=== PATIENT | male | born 1995 | race Two or more races ===

== ENCOUNTER 2016-12-17 18:00 | Inpatient (IN) | payer MEDICAID ==
[2016-12-17] MEDS ORDERED: VANCOMYCIN HCL/NORMAL SALINE 250 ML IV ONE (18:19)
[2016-12-17] MEDS ORDERED: TDAP ADULT 0.5 ML INJ (BOOSTRIX) IM ONE (18:19)
--- NOTE | 2016-12-17 18:27 | EDPHY ---
H & P Stated Complaint: abcess l axilla(iv drug use)drained 2 days ago at [facility]/hasn't fu - Personal History Current Tetanus/Diphtheria Vaccine: Yes - Medical/Surgical History Hx Asthma: No Hx Chronic Respiratory Disease: No Hx Diabetes: No Hx Cardiac Disease: No Hx Renal Disease: No Hx Cirrhosis: No Hx Alcoholism: No Hx HIV/AIDS: No Hx Splenectomy or Spleen Trauma: No Other PMH: iv drug use/mrsa - Social History Smoking Status: Never smoked Time Seen by Provider: 12/17/16 18:14 HPI/ROS: CHIEF COMPLAINT: Left forearm swelling, erythema HISTORY OF PRESENT ILLNESS: 21-year-old male lives in [place], history of IV methamphetamine use, was seen at [facility] 5 days ago for evaluation of left antecubital space soft tissue swelling at which point he had incision and drainage. He returned 2 days later and further incision and drainage on an abscess just distal to this area. He comes to the ER at [facility] today for further evaluation "because I heard the medical care in [place] is better". He is complaining of continued erythema, induration and notes decreased range of motion to the left elbow and pain with range of motion. He denies: Fever, chills, flu-like symptoms, chest pain, palpitations , dyspnea, back pain, abdominal pain. 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 Tetanus out-of-date SOCIAL HISTORY: IV methamphetamine use PHYSICAL EXAM (Prior to examination, patient consented to physical exam, hands were washed and my usual and customary physical exam procedures followed) 1) GENERAL: Well-developed, well-nourished, alert and oriented. Appears nontoxic 2) HEAD: Normocephalic, atraumatic 3) HEENT: Pupils equal, round, reactive to light bilaterally. Sclera anicteric. 4) NECK: Full range of motion, no meningeal signs. 5) LUNGS: Clear auscultation bilaterally, no wheezes, no rhonchi, no retractions. 6) HEART: Regular rate and rhythm, no murmur, no heave, no gallop. 7) ABDOMEN: No guarding, no rebound, no focal tenderness, 8) MUSCULOSKELETAL: left upper extremity: 2 incisions are noted, 1 at the antecubital fossa and 1 just distal to this. The distal incision has wound packing in place which is removed by myself. There is surrounding erythema, induration. Compartments are soft. Distal radial ulnar median nerve function intact with brisk pulses. He is unable to completely extend left elbow secondary to pain. No lymphangitic streaking. . 9) BACK: no visual or palpable abnormality. 10) SKIN: Cellulitic appearance left forearm 11) Psychiatric: Patient is oriented X 3, there is no agitation. DIFFERENTIAL DIAGNOSIS: In no particular include but limited to compartment syndrome, abscess, cellulitis, necrotizing fasciitis (Rigo Burnett) Constitutional: Initial Vital Signs Temperature (C) 36.8 C 12/17/16 18:04 Heart Rate 73 12/17/16 18:04 Respiratory Rate 18 12/17/16 18:04 Blood Pressure 108/71 12/17/16 18:04 O2 Sat (%) 96 12/17/16 18:04 O2 Delivery Mode Room Air Allergies/Adverse Reactions: amoxicillin Allergy (Verified 12/17/16 18:04) Home Medications: Medication Instructions Recorded NK [No Known Home Meds] 12/17/16 Medical Decision Making ED Course/Re-evaluation: 6:40 p.m.: Patient re-evaluated with serial exams. Recommended admission for evaluation and treatment of left forearm cellulitis and presence of no cutaneous MRSA history and injectable methamphetamine use. On speaking with the patient he states that when he was at [facility] a few days ago it was recommended he be admitted for IV antibiotics however he did not want to stay. 6:42 p.m.: Phone consultation with hospitalist Dr. Nieves who will admit patient to med surg (Rigo Burnett) Other Provider: PHYSICIAN DOCUMENTATION: The patient was evaluated and managed by the Physician Tie Fastener and myself. I have reviewed the chart and agree with the findings and plan of care as documented. In addition, I examined the patient myself. History confirmed as recent I/D at [facility], history of MRSA. Physical findings as follows: swollen tender left forearm but compartments soft, normal motor and sensory and capillary refill in the fingers of hand. The patient tells me he left against medical advice from [facility] even though they recommended IV antibiotics. No lymphangitis. No crepitus or eschar. Admission for IV antibiotics. I am the secondary supervising physician. (Delonte Melchor) - Data Points Laboratory Results: Laboratory Results 12/17/16 18:25 12/17/16 18:25 12/17/16 12/17/16 12/17/16 18:25 18:25 18:25 WBC 6.56 10^3/uL 10^3/uL (3.80-9.50) RBC 3.87 10^6/uL L 10^6/uL (4.40-6.38) Hgb 11.5 g/dL L g/dL (13.7-17.5) Hct 33.8 % L % (40.0-51.0) MCV 87.3 fL fL (81.5-99.8) MCH 29.7 pg pg (27.9-34.1) MCHC 34.0 g/dL g/dL (32.4-36.7) RDW 12.6 % % (11.5-15.2) Plt Count 328 10^3/uL 10^3/uL (150-400) MPV 9.8 fL fL (8.7-11.7) Neut % (Auto) 55.2 % % (39.3-74.2) Lymph % (Auto) 36.3 % % (15.0-45.0) Gibson % (Auto) 5.9 % % (4.5-13.0) Eos % (Auto) 1.5 % % (0.6-7.6) Baso % (Auto) 0.6 % % (0.3-1.7) Nucleat RBC Rel Count 0.0 % % (0.0-0.2) Absolute Neuts (auto) 3.62 10^3/uL 10^3/uL (1.70-6.50) Absolute Lymphs (auto) 2.38 10^3/uL 10^3/uL (1.00-3.00) Absolute Monos (auto) 0.39 10^3/uL 10^3/uL (0.30-0.80) Absolute Eos (auto) 0.10 10^3/uL 10^3/uL (0.03-0.40) Absolute Basos (auto) 0.04 10^3/uL 10^3/uL (0.02-0.10) Absolute Nucleated RBC 0.00 10^3/uL 10^3/uL (0-0.01) Immature Gran % 0.5 % % (0.0-1.1) Immature Gran # 0.03 10^3/uL 10^3/uL (0.00-0.10) PT 14.0 SEC SEC (12.0-15.0) INR 1.09 (0.83-1.16) APTT 34.5 SEC SEC (23.0-38.0) VBG Lactic Acid Sodium 138 mEq/L mEq/L (134-144) Potassium 4.2 mEq/L mEq/L (3.5-5.2) Chloride 101 mEq/L mEq/L (97-110) Carbon Dioxide 27 mEq/l mEq/l (22-31) Anion Gap 10 mEq/L mEq/L (8-16) BUN 12 mg/dL mg/dL (7-23) Creatinine 0.7 mg/dL mg/dL (0.7-1.3) Estimated GFR > 60 Glucose 89 mg/dL mg/dL (70-100) Calcium 9.2 mg/dL mg/dL (8.5-10.4) Total Bilirubin 0.7 mg/dL mg/dL (0.1-1.4) 12/17/16 18:25 WBC RBC Hgb Hct MCV MCH MCHC RDW Plt Count MPV Neut % (Auto) Lymph % (Auto) Gibson % (Auto) Eos % (Auto) Baso % (Auto) Nucleat RBC Rel Count Absolute Neuts (auto) Absolute Lymphs (auto) Absolute Monos (auto) Absolute Eos (auto) Absolute Basos (auto) Absolute Nucleated RBC Immature Gran % Immature Gran # PT INR APTT VBG Lactic Acid 0.5 mmol/L L mmol/L (0.7-2.1) Sodium Potassium Chloride Carbon Dioxide Anion Gap BUN Creatinine Estimated GFR Glucose Calcium Total Bilirubin Medications Given: Discontinued Medications Diphtheria/Tetanus/Acell Pertussis (Boostrix) 0.5 ml IM .ONCE ONE Stop: 12/17/16 18:20 Last Admin: 12/17/16 18:40 Dose: 0.5 ml Vancomycin/Sodium Chloride (Vancomycin 1 Gm (Premix)) 250 mls @ 250 mls/hr IV EDNOW ONE PRN Reason: Protocol Stop: 12/17/16 19:18 Last Admin: 12/17/16 18:56 Dose: 250 mls Departure - Departure Disposition: [facility] Inpatient Acute Clinical Impression: Cellulitis of forearm, left, Methamphetamine abuse, IV drug user Condition: Fair
[2016-12-17 18:39] LABS: % IMMATURE GRANULYOCYTES 0.5 % (0.0-1.1); ABSOLUTE IMMATURE GRANULOCYTES 0.03 10^3/uL (0.00-0.10); ADD DIFF? NO; ADD MORPH? NO; ADD SCAN? NO; ATYPICAL LYMPHOCYTE FLAG 30 (0-99); FRAGMENT RBC FLAG 0 (0-99); HEMATOCRIT 33.8 % (40.0-51.0); HEMOGLOBIN 11.5 g/dL (13.7-17.5); LEFT SHIFT FLG 0 (0-99); LIPEMIA HEMOLYSIS FLAG 90 (0-99); MEAN CELL HEMOGLOBIN 29.7 pg (27.9-34.1); MEAN CELL VOLUME 87.3 fL (81.5-99.8); MEAN PLATELET VOLUME 9.8 fL (8.7-11.7); PLATELET CLUMPS FLAG 10 (0-99); PLATELET COUNT 328 10^3/uL (150-400); RED BLOOD CELL COUNT 3.87 10^6/uL (4.40-6.38); RED CELL DISTRIBUTION WIDTH 12.6 % (11.5-15.2)
[2016-12-17 18:47] LABS: APTT 34.5 SEC (23.0-38.0); INR 1.09 (0.83-1.16)
[2016-12-17 18:52] LABS: ANION GAP 10 mEq/L (8-16); BILIRUBIN,TOTAL 0.7 mg/dL (0.1-1.4); CALCIUM 9.2 mg/dL (8.5-10.4); CARBON DIOXIDE 27 mEq/l (22-31); CHLORIDE 101 mEq/L (97-110); CREATININE 0.7 mg/dL (0.7-1.3); GLOMERULAR FILTRATION RATE > 60; GLUCOSE 89 mg/dL (70-100); POTASSIUM 4.2 mEq/L (3.5-5.2); SODIUM 138 mEq/L (134-144)
[2016-12-17] MEDS ORDERED: ONDANSETRON 4 MG/2 ML VIAL IVP PRN (20:06)
[2016-12-17] MEDS ORDERED: ACETAMINOPHEN 325 MG TAB PO PRN (20:06)
[2016-12-17] MEDS ORDERED: ONDANSETRON DISINTEGRATING 4 MG TAB PO PRN (20:06)
--- NOTE | 2016-12-17 20:13 | PDGENHP ---
History and Physical - Chief Complaint Acute arm pain - History of Present Illness 21-year-old male presenting with acute arm pain characterized as burning, located in the left forearm in the antecubital fossa with associated erythema and soft tissue edema, onset of symptoms approximately 3 weeks ago and has been slowly progressing thereafter. Using the left arm exacerbates pain and pain is somewhat alleviated by resting the arm. The patient notably sought medical attention at [facility] 5 days ago where he had an initial incision and drainage performed, placed on Bactrim. Patient reports he began taking Bactrim , was adherent to the medication, re-presented at [facility] 2 days ago for reassessment and repeat incision and drainage. He reports that his left antecubital fossa is Primary access site for IV drug use. Reports that his last use of heroin was around noon today. History Information - Allergies/Home Medication List Allergies/Adverse Reactions: amoxicillin Allergy (Verified 12/17/16 18:04) Home Medications: NK [No Known Home Meds] 12/17/16 [Last Taken Unknown] I have personally reviewed and updated: family history, medical history, social history, surgical history - Past Medical History Additional medical history: regular drug use since age 14, addiction to heroin and trial of Suboxone in past, transitioned to methamphetamine thereafter - Surgical History Reports: no pertinent surgical hx - Family History Additional family history: no family members with any mental health issues or substance abuse disorders - Social History Smoking Status: Never smoked Alcohol Use: None Drug Use: Heroin, Other ( methamphetamine, IV use) Additional social history: lives in [place] Review of Systems ROS: 10pt was reviewed & negative except for what was stated in HPI & below Skin: Reports: change in color, other ( soft tissue edema erythema) Physical Exam Temp Pulse Resp BP Pulse Ox 36.5 C 82 16 110/71 96 12/17/16 19:38 12/17/16 19:38 12/17/16 19:38 12/17/16 19:38 12/17/16 19:38 Constitutional: no apparent distress, not in pain, chronically ill appearing, uncomfortable Eyes: PERRL, anicteric sclera, EOMI Ears, Nose, Mouth, Throat: moist mucous membranes, hearing normal, ears appear normal, no oral mucosal ulcers Cardiovascular: regular rate and rhythym, no murmur, rub, or gallop, edema ( trace bilateral lower extremity edema, left upper extremity distal edema), other ( no Janeway lesions) Respiratory: no respiratory distress, no rales or rhonchi, clear to auscultation Gastrointestinal: normoactive bowel sounds, soft, non-tender abdomen, no palpable masses Skin: other ( soft tissue edema left upper extremity, induration around incision sites, mild tenderness around the incision sites with minimal pustulant drainage) Musculoskeletal: other ( range of motion limited to approximately 90 degrees flexion in his left upper extremity, full extension, full range of motion left wrist without pain) Neurologic: AAOx3, sensation intact bilaterally, other ( no tremulousness) Psychiatric: interacting appropriately, not anxious, not encephalopathic, thought process linear Lab Data & Imaging Review 12/17/16 18:25 12/17/16 18:25 WBC 6.56 10^3/uL (3.80-9.50) 12/17/16 18:25 RBC 3.87 10^6/uL (4.40-6.38) L 12/17/16 18:25 Hgb 11.5 g/dL (13.7-17.5) L 12/17/16 18:25 Hct 33.8 % (40.0-51.0) L 12/17/16 18:25 MCV 87.3 fL (81.5-99.8) 12/17/16 18:25 MCH 29.7 pg (27.9-34.1) 12/17/16 18:25 MCHC 34.0 g/dL (32.4-36.7) 12/17/16 18:25 RDW 12.6 % (11.5-15.2) 12/17/16 18:25 Plt Count 328 10^3/uL (150-400) 12/17/16 18:25 MPV 9.8 fL (8.7-11.7) 12/17/16 18:25 Neut % (Auto) 55.2 % (39.3-74.2) 12/17/16 18:25 Lymph % (Auto) 36.3 % (15.0-45.0) 12/17/16 18:25 [place]on % (Auto) 5.9 % (4.5-13.0) 12/17/16 18:25 Eos % (Auto) 1.5 % (0.6-7.6) 12/17/16 18:25 Baso % (Auto) 0.6 % (0.3-1.7) 12/17/16 18:25 Nucleat RBC Rel Count 0.0 % (0.0-0.2) 12/17/16 18:25 Absolute Neuts (auto) 3.62 10^3/uL (1.70-6.50) 12/17/16 18:25 Absolute Lymphs (auto) 2.38 10^3/uL (1.00-3.00) 12/17/16 18:25 Absolute Monos (auto) 0.39 10^3/uL (0.30-0.80) 12/17/16 18:25 Absolute Eos (auto) 0.10 10^3/uL (0.03-0.40) 12/17/16 18:25 Absolute Basos (auto) 0.04 10^3/uL (0.02-0.10) 12/17/16 18: Absolute Nucleated RBC 0.00 10^3/uL (0-0.01) 12/17/16 18:25 Immature Gran % 0.5 % (0.0-1.1) 12/17/16 18:25 Immature Gran # 0.03 10^3/uL (0.00-0.10) 12/17/16 18:25 PT 14.0 SEC (12.0-15.0) 12/17/16 18:25 INR 1.09 (0.83-1.16) 12/17/16 18:25 APTT 34.5 SEC (23.0-38.0) 12/17/16 18:25 VBG Lactic Acid 0.5 mmol/L (0.7-2.1) L 12/17/16 18:25 Sodium 138 mEq/L (134-144) 12/17/16 18:25 Potassium 4.2 mEq/L (3.5-5.2) 12/17/16 18:25 Chloride 101 mEq/L (97-110) 12/17/16 18:25 Carbon Dioxide 27 mEq/l (22-31) 12/17/16 18:25 Anion Gap 10 mEq/L (8-16) 12/17/16 18:25 BUN 12 mg/dL (7-23) 12/17/16 18:25 Creatinine 0.7 mg/dL (0.7-1.3) 12/17/16 18:25 Estimated GFR > 60 12/17/16 18:25 Glucose 89 mg/dL (70-100) 12/17/16 18:25 Calcium 9.2 mg/dL (8.5-10.4) 12/17/16 18:25 Total Bilirubin 0.7 mg/dL (0.1-1.4) 12/17/16 18:25 Visualized and Interpreted imaging results: Yes Interpretation: left upper extremity x-ray demonstrating no evidence of gas or osseous erosions Assessment & Plan Assessment: 21-year-old male presenting with acute cellulitis left upper extremity in the setting of IV drug use Plan: 1. Cellulitis. Acute, new problem this provider, further workup indicated. Evidenced by soft tissue edema, induration, erythema, tenderness, with recently incised abscesses in the affected area -patient has failed outpatient oral Bactrim and is presenting with worsening in swelling and tenderness -placed on vancomycin, reassess for improvement tomorrow a.m. -order outside records including micro results from [facility], patient reports that he was told he was MRSA positive -blood culture sent -infectious Disease consultation placed -get left upper extremity ultrasound to rule out deep venous thrombosis, rule out abscess 2. IV drug use. Chronic, patient is agreeable to HIV test but he also reports that he had 1 recently performed at [facility] and will order these outside records -monitor for signs of heroin withdrawal, currently ordered for Atarax as needed , ibuprofen as needed, Tylenol as needed, can add clonidine if needed -attempt to give IV Toradol for pain relief, attempt to avoid opiates if possible Diet. Regular Prophylaxis. Low risk, SCDs Code. Full Disposition. Anticipated discharge is 12/18/2016, pending further workup and treatment as outlined above. If patient requires extended hospitalization for ongoing use of IV antibiotics or repeat incision and drainage, then he should be upgraded to inpatient admission status for reasonable medical necessity.
[2016-12-17] MEDS ORDERED: hydrOXYzine HCL 25 MG TAB PO PRN (20:19)
[2016-12-18 05:27] LABS: % IMMATURE GRANULYOCYTES 0.5 % (0.0-1.1); ABSOLUTE IMMATURE GRANULOCYTES 0.03 10^3/uL (0.00-0.10); ADD DIFF? NO; ADD MORPH? NO; ADD SCAN? NO; ATYPICAL LYMPHOCYTE FLAG 30 (0-99); FRAGMENT RBC FLAG 0 (0-99); HEMOGLOBIN 11.4 g/dL (13.7-17.5); LEFT SHIFT FLG 0 (0-99); LIPEMIA HEMOLYSIS FLAG 90 (0-99); MEAN CELL HEMOGLOBIN 30.1 pg (27.9-34.1); MEAN CELL HEMOGLOBIN CONCENTR. 34.5 g/dL (32.4-36.7); MEAN CELL VOLUME 87.1 fL (81.5-99.8); MEAN PLATELET VOLUME 9.7 fL (8.7-11.7); PLATELET CLUMPS FLAG 0 (0-99); PLATELET COUNT 299 10^3/uL (150-400); RED BLOOD CELL COUNT 3.79 10^6/uL (4.40-6.38); RED CELL DISTRIBUTION WIDTH 12.6 % (11.5-15.2)
[2016-12-18 05:31] LABS: ALANINE AMINOTRANSFERASE 28 IU/L (21-72); ALBUMIN 3.2 g/dL (3.5-5.0); ALKALINE PHOSPHATASE 80 IU/L (38-126); ANION GAP 7 mEq/L (8-16); ASPARTATE AMINOTRANSFERASE 19 IU/L (17-59); BILIRUBIN,TOTAL 0.7 mg/dL (0.1-1.4); CALCIUM 8.9 mg/dL (8.5-10.4); CARBON DIOXIDE 27 mEq/l (22-31); CHLORIDE 105 mEq/L (97-110); CREATININE 0.6 mg/dL (0.7-1.3); GLOMERULAR FILTRATION RATE > 60; GLUCOSE 85 mg/dL (70-100); POTASSIUM 4.6 mEq/L (3.5-5.2); SODIUM 139 mEq/L (134-144); TOTAL PROTEIN 6.6 g/dL (6.3-8.2)
[2016-12-18] MEDS: VANCOMYCIN 750 MG in D5W 150 ML IV SCH ×2 (06:54→18:30)
--- NOTE | 2016-12-18 12:30 | GCON ---
[f rep st] CONSULTATION INFECTIOUS DISEASE CONSULTATION DATE OF CONSULTATION: 12/18/2016 REFERRING PHYSICIAN: Mahesh Nieves MD REASON FOR CONSULTATION: Multiple forearm abscesses secondary to injection drug use, for further ev aluation and opinion. CHIEF COMPLAINT: Pain involving left forearm and drainage. HISTORY OF PRESENTING ILLNESS: This is a 21-year-old male with a past medical history significant f or injection drug usage since the age of 14 who recently developed cellulitis and focal swelling inv olving the left forearm about 1 week ago. He apparently went to [facility] and at that time had 1 incision and drainage done last Monday. Cultures were apparently taken, but those are not availab le to me at present. He was placed on Bactrim. He states that he came back the second day for anot her site to undergo an incision and drainage. He states that he has been taking the Bactrim since t hat time, but has had ongoing pain, and swelling, and drainage, and thus came in yesterday for furth er evaluation and opinion. He has had no further fevers or shaking chills since incision and draina ge just last week. He does not know the results of the cultures that were done. He did recently do injection drugs at that site prior to the development of these abscesses and cellulitis. He is cur rently placed on vancomycin. He had an ultrasound done yesterday looking for a DVT which was negati ve. He also had an x-ray done of the forearm which showed no evidence of fracture. He states that he is feeling better, but he is having ongoing drainage from at least one of the incision sites. He also states that an HIV test was done at [facility], but he does know the results of that as wel l. Infectious Disease is now consulted for further evaluation and opinion. REVIEW OF SYSTEMS: CONSTITUTIONAL: Denies any current fevers or shaking chills. HEAD: No headach es. EYES: No change in vision. ENT: No sore throat, difficulty swallowing, ear pain or drainage. CARDIOVASCULAR: Denies any chest pain or rapid heartbeat. RESPIRATORY: Denies any cough, sputum production, or shortness of breath. ABDOMEN: No nausea, vomiting, abdominal pain, diarrhea. : No dysuria or hematuria. BACK: No back pain or flank pain. MUSCULOSKELETAL: No joint pain or mu scle aches. SKIN: No other rashes, or open wounds, or abscesses present. Rest of 10-point review of systems is essentially negative. PAST MEDICAL HISTORY: Significant for injection drug usage since the age of 14, previous skin absce sses. PAST SURGICAL HISTORY: Recent incision and drainage. ALLERGIES: Amoxicillin for which he gets a rash. He denies throat swelling, shortness of breath, o r facial swelling. FAMILY HISTORY: Reviewed and found to have no significant family history. SOCIAL HISTORY: He is a nonsmoker. He does not drink alcohol. Does use heroin and methamphetamine s. Lives with his mother. No travel recently. He does not work. MEDICATIONS: As per OCT. PHYSICAL EXAMINATION: VITAL SIGNS: Temperature current 36.8, pulse 62, blood pressure 115/72, satu rations 98% on room air. GENERAL: Patient is resting in bed, in no acute respiratory distress. Aw dmitiry, alert, oriented x3. HEENT: Head is normocephalic, atraumatic. Eyes without conjunctival inje ction or petechiae noted. Oropharynx is clear. CARDIOVASCULAR: S1, S2. Regular rate and rhythm. No murmurs appreciated. RESPIRATORY: Clear to auscultation bilaterally. No rhonchi or rales appr eciated. ABDOMEN: Positive bowel sounds in all 4 quadrants. Soft, nontender, nondistended. No ob vious organomegaly appreciated. EXTREMITIES: No lower extremity edema. MUSCULOSKELETAL: No obvio us joint effusions or pain on palpation of the joints. SKIN: Pertinent findings: Left forearm, sp ecifically antecubital fossa and just below that with 2 abscesses, status post I and D, ongoing xiomara ration and cellulitis-like changes present. No obvious erythema. I am able to express purulent mat erial from at least the lower abscess site. LABORATORY AND X-RAY DATA: White blood cell count is 5.6, hemoglobin 11.4, platelets are 299, INR 1 .0. Blood gas, venous: Lactic acid 0.5. Sodium 139, potassium 4.6, chloride 75, bicarb 27, BUN 9, creatinine 0.6. LFTs within normal range. Blood cultures x2 sets are pending. Results have all been reviewed by me and are as stated above. ASSESSMENT: 1. Left forearm abscesses/pseudo abscesses, status post incision and drainage. 2. Injection drug usage. PLAN: Records from [facility] are still pending. There are no records noted on the CORHIO syste m available. We will continue with vancomycin for now until those have been examined and reviewed. If HIV, hepatitis C, hepatitis B have not been checked at [facility], would recommend checking t hose and this was discussed with the patient and his mother at the bedside. We will check a regular ultrasound to evaluate for any ongoing existing fluid collections that may need further incision an d drainage to help with the progress of therapy. The plan of care was discussed in detail with the patient and the mother. Care coordinated with the hospitalist team. Thank you very much for allowing us the opportunity to care for your patient in consultation. /[id number]/MODL
--- NOTE | 2016-12-18 13:08 | HOSPPROG ---
Hospitalist Progress Note Assessment/Plan: 21-year-old male presenting with acute cellulitis left upper extremity in the setting of IV drug use #. Cellulitiso L AC region -patient has failed outpatient oral Bactrim and is presenting with worsening in swelling and tenderness -ordered outside records including micro results from [facility], patient reports that he was told he was MRSA positive -blood culture sent -infectious Disease has seen and recommends ongoing Vanco until micro results arrive -getting another ultrasound for abscess evaluation that may need further I&D #. IV drug use. Chronic, patient is agreeable to HIV test but he also reports that he had 1 recently performed at [facility] and will order these outside records -monitor for signs of heroin withdrawal, currently ordered for Atarax as needed, ibuprofen as needed, Tylenol as needed, can add clonidine if needed -attempt to give IV Toradol for pain relief, attempt to avoid opiates if possible #. Diet. Regular #. Prophylaxis. Low risk, SCDs #. Code. Full #. LOS: Pt being admitted to inpt status for ongoing testing and further treatment. Subjective: Mostly asleep through the appt. No f/c. Objective: Vital Signs Temp Pulse Resp BP Pulse Ox 98.2 F 62 14 115/72 98 12/18/16 08:00 12/18/16 08:00 12/18/16 08:00 12/18/16 08:00 12/18/16 08:00 Laboratory Results 12/18/16 05:10 12/18/16 05:10 12/17/16 12/18/16 12/19/16 05:59 05:59 05:59 Intake Total 250 200 Balance 250 200 PT 14.0 SEC (12.0-15.0) 12/17/16 18:25 INR 1.09 (0.83-1.16) 12/17/16 18:25 - Physical Exam Constitutional: no apparent distress, appears nourished Eyes: anicteric sclera Ears, Nose, Mouth, Throat: moist mucous membranes Cardiovascular: regular rate and rhythym, no murmur, rub, or gallop Respiratory: no respiratory distress, no rales or rhonchi Skin: other (L arm swollen/ erythema appreciated) ICD10 Worksheet Patient Problems: Problems Problem Status Onset Cellulitis of forearm, left Acute IV drug user Acute Methamphetamine abuse Acute
[2016-12-18] MEDS: IBUPROFEN 200 MG TAB PO PRN (14:42)
[2016-12-18] MEDS: KETOROLAC 15 MG/1 ML SDV IVP PRN (14:43)
--- NOTE | 2016-12-18 15:12 | WOCRNPDOC ---
WOCRN Advanced Assessment Note - Skin Integrity Problem, Advanced Assess Left Proximal Arm Puncture Wound Dressing Type: Open to Air Exudate Amount: None Integumentary Issue Intervention: Dressing Applied (Silvasorb gel and bandaid) Tressa Wound Tissue: Erythema, Swollen, Indurated Tressa Wound Swelling: Mild Wound Bed Constitution: Scab Wound Edges: Attached Site Odor: None Site Measurement - Head-to-Toe Length X Width X Depth (cm): 0.2 x 1 x 0 (scab) Skin Integrity Problem Comment: Slight warmth palpable at site, patient c/o mild tenderness. Cleaned site w/sterile NS and gauze; applied skin prep to periwound, Silvasorb gel to scab, covered with small bandaid. Care education to patient and mother; report to CLAUDY Snyder. Left Distal Arm Puncture Wound Dressing Type: Open to Air Exudate Amount: Scant Exudate Color: Red Exudate Characteristic(s): Serosanguinous Integumentary Issue Intervention: Dressing Applied (skin prep to periwound, Algidex packing; small Allevyn), Dressing Initialed & Dated Tressa Wound Tissue: Erythema, Swollen, Indurated Tressa Wound Swelling: Mild Wound Bed Color: Red Wound Bed Constitution: Smooth Tissue, Undermining (0.7 cm) Wound Edges: Well Defined Site Odor: None Site Measurement - Head-to-Toe Length X Width X Depth (cm): 1.8 x 0.5 x 0.8 Skin Integrity Problem Comment: Slight warmth palpable at site, patient c/o tenderness. Cleaned site w/sterile NS and gauze; applied skin prep to periwound , filled with 1" strip of Algidex packing, covered with small bandaid. Care education to patient and mother; report to CLAUDY Snyder.
[2016-12-19 05:34] LABS: % IMMATURE GRANULYOCYTES 0.8 % (0.0-1.1); ABSOLUTE IMMATURE GRANULOCYTES 0.06 10^3/uL (0.00-0.10); ADD DIFF? NO; ADD MORPH? NO; ADD SCAN? NO; ATYPICAL LYMPHOCYTE FLAG 20 (0-99); FRAGMENT RBC FLAG 0 (0-99); HEMATOCRIT 34.3 % (40.0-51.0); HEMOGLOBIN 11.9 g/dL (13.7-17.5); LEFT SHIFT FLG 0 (0-99); LIPEMIA HEMOLYSIS FLAG 90 (0-99); MEAN CELL HEMOGLOBIN 29.9 pg (27.9-34.1); MEAN CELL HEMOGLOBIN CONCENTR. 34.7 g/dL (32.4-36.7); MEAN CELL VOLUME 86.2 fL (81.5-99.8); MEAN PLATELET VOLUME 9.5 fL (8.7-11.7); PLATELET CLUMPS FLAG 10 (0-99); PLATELET COUNT 331 10^3/uL (150-400); RED BLOOD CELL COUNT 3.98 10^6/uL (4.40-6.38); RED CELL DISTRIBUTION WIDTH 12.3 % (11.5-15.2)
[2016-12-19] MEDS: VANCOMYCIN 750 MG in D5W 150 ML IV SCH (05:59)
[2016-12-19] MEDS: KETOROLAC 15 MG/1 ML SDV IVP PRN (05:59)
[2016-12-19] MEDS: IBUPROFEN 200 MG TAB PO PRN (05:59)
[2016-12-19 08:55] VITALS: TEMP 98.2; O2SAT 98
--- NOTE | 2016-12-19 12:46 | HOSPPROG ---
Hospitalist Progress Note Assessment/Plan: 21-year-old male presenting with acute cellulitis left upper extremity in the setting of IV drug use. Today is my first encounter with the patient/chart reviewed. #. Cellulitis L AC -at previous injection sites -unclear if he failed OP oral Bactrim/ I don't think he filled the prescription -ID seeing and is on Vanco -patient reports he had MRSA -ultrasound shows no abscess #. IV drug use. -uses meth and heroine -realizes it is a problem -will ask CM to give him resources #. Diet. Regular #. Prophylaxis. Low risk, SCDs #. Code. Full #. Plan: awaiting input from ID/ should be able to go soon. Subjective: Ray said his arm is feeling much better. Objective: Vital Signs Temp Pulse Resp BP Pulse Ox 36.8 C 70 16 90/48 L 98 12/19/16 08:00 12/19/16 08:00 12/19/16 08:00 12/19/16 08:00 12/19/16 08:00 Laboratory Results 12/19/16 05:08 12/18/16 12/19/16 12/20/16 05:59 05:59 05:59 Intake Total 825 165 Balance 825 165 PT 14.0 SEC (12.0-15.0) 12/17/16 18:25 INR 1.09 (0.83-1.16) 12/17/16 18:25 - Physical Exam Constitutional: no apparent distress, appears nourished, not in pain Eyes: PERRL Ears, Nose, Mouth, Throat: hearing normal Cardiovascular: regular rate and rhythym, no murmur, rub, or gallop Respiratory: no respiratory distress Gastrointestinal: normoactive bowel sounds Skin: warm Musculoskeletal: muscular tenderness (some in the left forearm area/ no drainage ) Neurologic: AAOx3 Psychiatric: interacting appropriately ICD10 Worksheet Patient Problems: Problems Problem Status Onset Cellulitis of forearm, left Acute IV drug user Acute Methamphetamine abuse Acute
[2016-12-19 16:36] VITALS: BP 98/55; PULSE 84; RESP 17
--- NOTE | 2016-12-19 17:44 | PCMIDPN ---
Assessment/Plan: Assessment/Plan: * left upper extremity abscess associated with injection drug use: Blood cultures are no growth. No active cellulitis. Abscesses resolving post drainage. Can transition to oral antibiotics - he was prescribed Bactrim at time of prior discharge and notes he did not fill his prescription. Bactrim would be reasonable choice based on coverage of MRSA and other skin ankur. Local wound care will continue. Will see patient in the office for follow-up in 2 days time to ensure continued to improve. 12/19/16 17:41 Subjective: Feels much better. No significant arm pain. Packing in abscess cavity changed earlier today. Objective: Vital Signs Temp Pulse Resp BP Pulse Ox 36.8 C 84 17 98/55 L 98 12/19/16 16:00 12/19/16 16:00 12/19/16 16:00 12/19/16 16:00 12/19/16 16:00 Laboratory Results 12/19/16 05:08 12/18/16 12/19/16 12/20/16 05:59 05:59 05:59 Intake Total 825 165 Balance 825 165 - Physical Exam General Appearance: alert, no apparent distress Extremities: other ( Abscess cavity packed; no surrounding erythema ; mild surrounding induration ; antecubital fossa with minimal erythema and associated induration without fluctuance) ICD10 Worksheet Patient Problems: Problems Problem Status Onset Cellulitis of forearm, left Acute IV drug user Acute Methamphetamine abuse Acute
[2016-12-19] MEDS ORDERED: VANCOMYCIN 750 MG in D5W 150 ML IV SCH (18:00)
--- NOTE | 2016-12-20 07:11 | GDS ---
[f rep st] DISCHARGE SUMMARY DISCHARGE DIAGNOSES: 1. Left AC cellulitis secondary from IV drug use. 2. IV drug use. CONSULTATIONS: During his stay, Dr. Amparo Jamison with Infectious Disease. BRIEF HISTORY: The patient is a 21-year-old male, with past medical history significant for IV drug use since age of 14. He developed cellulitis with swelling involving the left forearm about a week ago. He went to [facility] and had an incision and drainage done last Monday. He was placed on Bactrim. He said he had been taking the Bactrim since that time, but on further evaluation today h kayce said that he took some of the pills and sold several of them. He was treated with IV vancomycin a nd ultrasound did not show any abscess. He improved throughout his stay. He will be discharged [facility] and further follow up with Dr. Barker in the outpatient setting. HOSPITAL COURSE PER PROBLEM: 1. Left AC cellulitis at previous injection sites. He will be sent home on Bactrim and further fol low up with Dr. Barker. 2. IV drug use. He uses methamphetamines as well as heroin. I told him it is a huge problem in a 21-year-old. Case management has given him resources. His sister is also very involved trying to h elp him find resources. PENDING LABS AND TESTS: None. CONDITION AT DISCHARGE: Stable. Blood pressure is 98/55, heart rate 84, respiratory rate 17, O2 sa turation room air 98%, temperature 36.8 Celsius. MEDICATIONS AT DISCHARGE: Please see the EMR. DISCHARGE INSTRUCTIONS: 1. To stop using IV drugs. 2. To take the Bactrim as prescribed with water. 3. Follow up Dr. Barker, he has an appointment already scheduled. /[id number]/MODL
[2016-12-22 13:13] LABS: HCV QT RNA PCR < 1 IU/mL (<15)
== END 2016-12-19 17:55 | disposition home or self-care (01) | DRG 603 ==
LOC: F3N 19:52 → OBSVTOIN 12-18 12:55
PROVIDERS: ADMIT Internal Medicine; ATTEND Internal Medicine
DX: L03.114 Cellulitis of left upper limb (principal); F15.20 Other stimulant dependence, uncomplicated; Z86.14 Personal history of Methicillin resistant Staphylococcus aureus infection; Z23 Encounter for immunization; Z88.1 Allergy status to other antibiotic agents
CPT/HCPCS: 96365; G0378; J1885; J3370